=== PATIENT | female | born 1995 ===

== ENCOUNTER 2017-11-24 16:12 | Emergency (ER) | payer OTHER ==
[2017-11-24 16:27] VITALS: BP 104/68
--- NOTE | 2017-11-24 16:47 | UC ---
Cardiac HPI - HPI Summary HPI Summary: 22 yo F c/o chest pain radiating around to bilateral flanks intermittently for 3 months, worse for 2 days. Pt is accompanied by her mother. Pt was seen in [facility] by Santana Greer DO last pm, and records were obtained which state EKG and CXR were normal. The actual EKG was not transmitted, but the actual CXR report was transmitted and showed no acute pulmonary process. Pt is accompanied by her mother. Pt has a 6 month old infant and is , has not taken anything for pain because she didn't know what she could safely take. No fever. No urinary symptoms. No vomiting. Pt states that she had GERD with her PG and it wasn't like this. Pt is on OCP's, does not think she is PG again. No SOB, no URI sxs. No calf pain. No personal hx or family hx of blood clots. Back pain is reproducible. States she has not slept due to pain. - History of Current Complaint Chief Complaint: UCChestPain Stated Complaint: CHEST PAIN, BACK PAIN Time Seen by Provider: 11/24/17 16:33 Hx Obtained From: Patient, Family/Collection Systems Administrator - mother Hx Last Menstrual Period: 11/09/17 Onset/Duration: Gradual Onset, Lasting Weeks, Worse Since - 2days Timing: Constant Initial Severity: Moderate Current Severity: Severe Pain Intensity: 8 Chest Pain Location: Mid Sternal Character: Tightness Aggravating Factor(s): Other - food Alleviating Factor(s): Nothing Associated Signs & Symptoms: Positive: Chest Pain, Back Pain - bilateral flank pain. Negative: SOB, Fever, Nausea/Vomiting Related History: Similar Episode/Dx as - GERD - Allergy/Home Medications Allergies/Adverse Reactions: Allergies Allergy/AdvReac Type Severity Reaction Status Date / Time seasonal Allergy Sneezing Uncoded 11/24/17 16:28 Home Medications: Home Medications Oral Contraceptives DAILY 11/24/17 [History] PMH/Surg Hx/FS Hx/Imm Hx Previously Healthy: No GI/ History: Gastroesophageal Reflux Psychological History: Anxiety - Surgical History Surgical History: None - Family History Known Family History: Positive: Hypertension, Other Family History: HTN in mother - Social History Occupation: Employed Full-time Lives: With Family Alcohol Use: Rare Substance Use Type: None Smoking Status (MU): Never Smoked Tobacco - Immunization History Most Recent Tetanus Shot: Unsure Review of Systems Constitutional: Negative Skin: Negative ENT: Negative Respiratory: Negative Cardiovascular: Chest Pain Gastrointestinal: Negative Genitourinary: Negative Motor: Negative Neurovascular: Negative Musculoskeletal: Arthralgia - bilateral flank pain Neurological: Negative Psychological: Negative Is Patient Immunocompromised?: No All Other Systems Reviewed And Are Negative: Yes Physical Exam Triage Information Reviewed: Yes Appearance: Well-Appearing, Pain Distress - mod, Obese Vital Signs: Initial Vital Signs Temp 99.8 F 11/24/17 16:22 Pulse 82 11/24/17 16:22 Resp 16 11/24/17 16:22 BP 104/68 11/24/17 16:22 Pulse Ox 99 11/24/17 16:22 Vital Signs Reviewed: Yes Eyes: Positive: Conjunctiva Clear ENT: Positive: Normal ENT inspection Neck: Positive: Supple, Nontender, No Lymphadenopathy Respiratory: Positive: Chest non-tender, Lungs clear, Normal breath sounds, No respiratory distress, No accessory muscle use. Negative: Wheezing Cardiovascular: Positive: RRR, No Murmur, Pulses Normal, Brisk Capillary Refill Abdomen Description: Positive: Nontender, No Organomegaly, Soft. Negative: Distended, Guarding Musculoskeletal: Positive: Strength Intact, ROM Intact, Other: - no calf tenderness Neurological: Positive: Alert, Muscle Tone Normal Psychological Exam: Normal Skin Exam: Normal Diagnostics - EKG Cardiac Rate: NL - 73, taken at 17:38 Cardiac Rhythm: Sinus: Normal Ectopy: None ST Segment: Non-Specific - nl AVIVCT,nl axis,nl QTc,no acute changes,no signif change c/w 07/12/13 Re-Evaluation - Re-Evaluation First Eval Re-Evaluation Time: 17:20 Change: Unchanged - informed of neg HCG and that urine is sent for culture. Advised re discharge instructions. - Assessment/Plan Course Of Treatment: 22 yo F, 6mos post , lactating, with CP and bilat flank pain. UA sent for culture, otherwise neg. HCG neg. Pt had not taken anything for pain, given acetaminophen and advised that she may safely take this while . Prescribed omeprazole 20mg qhs, also safe with , and advised re: anti-GERD measures. Work release for today given. Advised to have definite F/U. EKG today, NAD, unchanged from 2012. Records from ED visit at [facility] last pm reviewed on this visit. Pt is ambulatory at [facility] with her mother. - Differential Diagnoses - Chest Pain Differential Diagnosis/HQI/PQRI: ACS, Angina, Chest Wall, GI Disease, Lower Respiratory Infection, Pulmonary Embolism - Clinical Impression Provider Diagnoses: chest pain. bilateral flank pain. GERD. lactating female Discharge - Sign-Out/Discharge Documenting (check all that apply): Discharge/Admit/Transfer - discharge home - Discharge Plan Condition: Stable Disposition: HOME Prescriptions: Omeprazole CAP* [Prilosec CAP* 20 MG] 20 mg PO BEDTIME #30 cap. Patient Education Materials: Chest Pain (ED), Gastroesophageal Reflux Disease ( ED) Forms: *Work Release Referrals: Tiff Infante MD [Medical Doctor] - 2 Days Additional Instructions: You were given acetaminophen 650mg orally at 5:10pm today. You may take acetaminophen 650mg orally every four hours as needed for pain, and this is safe while you are , and will not make GERD worse. We have prescribed omeprazole 20mg at bedtime that you may take for GERD. This is also safe with . Your EKG today did not show any abnormalities, and was unchanged when compared with the one from 07/12/2013 that we had in our records. You may also take TUMS, which is a good source of calcium, for your GERD, up to 2 tablets four times a day. Your urine sample showed a few white blood cells. It was sent for a culture. We will notify you if you need further treatment based on those results. Have definite follow up with Tiff Infante in 2 days if no better. Return to urgent care if you have new or worsening symptoms. - Billing Disposition and Condition Condition: STABLE Disposition: HOME
[2017-11-24] MEDS ORDERED: Acetaminophen TAB* 325 MG PO ONE (17:03)
== END 2017-11-24 17:25 | disposition home or self-care (01) ==
LOC: UCCORT 16:12
DX: R07.9 Chest pain, unspecified (principal); R10.9 Unspecified abdominal pain; K21.9 Gastro-esophageal reflux disease without esophagitis; Z32.02 Encounter for pregnancy test, result negative
CPT/HCPCS: 81003; 84702; 87086; 93005; 99212; A9270-GY; G0463